=== PATIENT | female | born 2000 | race American Indian/Alaskan Native ===

== ENCOUNTER → 2021-07-17 13:17 | Outpatient (CLI) | payer OTHER, SELFPAY ==
[2021-07-17 15:00] LABS: COVID19 -Nasal RAPID Negative (Negative)
== END ==
PROVIDERS: Visit Provider Physician Assistant
DX: Z20.822 Contact with and (suspected) exposure to COVID-19 (principal); J31.2 Chronic pharyngitis
CPT/HCPCS: 87070; 87635

== ENCOUNTER 2023-07-03 23:00 | Emergency (ER) | payer OTHER, SELFPAY ==
[2023-07-03 23:12] VITALS: BP 130/56; PULSE 71; RESP 17; TEMP 36.6; O2SAT 97; BMI 24.9
--- NOTE | 2023-07-03 23:20 | PC.NURSE ---
At this time, this RN called poison control and reports the accidental overdose of 1800mcg of vaginal misoprostol. There are not expected to be any major side effects other than possibly worse cramping than she would have otherwise had. Patient does not need to stay for monitoring, is ok to DC. She should return to the ER for sever vaginal bleeding.
--- NOTE | 2023-07-04 01:21 | ED.GENADULT ---
HPI - General Adult General Chief complaint: Toxicology Problem Stated complaint: overdosed on iisoprostol took 9 Time Seen by Provider: 07/04/23 01:21 Source: patient Mode of arrival: Ambulatory History of Present Illness HPI narrative: 23-year-old diagnosed with a missed , currently 12 weeks with 4 week size gestational sac and no bleeding. She was prescribed misoprostol and was to take it in 3 divided doses. Her mom laid out the 3 divided doses and Franny thought it was all supposed to be at 1 time. She used all 3 doses intravaginally at the same time. She comes in with concerns for overdose and questions. She is noting some mild abdominal cramping. She has taken ibuprofen as recommended by her OB provider. She does think that she is starting to have some minor spotting. Related Data Home Medications Medication Instructions Recorded Confirmed misoprostol 200 mcg tablet 600 mcg PO QID 07/03/23 07/03/23 Allergies Allergy/AdvReac Type Severity Reaction Status Date / Time Tetanus Vaccines and Toxoid Allergy Unknown Verified 07/03/23 23:19 [TETANUS VACCINES & TOXOID] Review of Systems Review of Systems Narrative: Pertinent positive and negative findings as per HPI Patient History Social History Smoking Status: Never smoker Smoking Status: Never smoker alcohol intake frequency: other Substance Use Type: does not use Exam Initial Vital Signs Initial Vital Signs: Vital Signs Temperature 98 F 07/03/23 23:12 Pulse Rate 71 07/03/23 23:12 Respiratory Rate 17 07/03/23 23:12 Blood Pressure 130/56 L 07/03/23 23:12 Pulse Oximetry 97 07/03/23 23:12 Oxygen Delivery Method Room Air 07/03/23 23:12 General: Alert appropriate in no acute distress Respiratory: Able to speak in full sentences, no obvious respiratory distress Skin: No obvious rashes, warm and dry Neurologic: Grossly intact no obvious asymmetries or abnormalities Psych: appropriate insight and affect, cooperative Course Vital Signs Vital signs: Vital Signs - 8 hr 07/03/23 23:12 Temperature 98 F Pulse Rate 71 Respiratory Rate 17 Blood Pressure 130/56 L Pulse Oximetry 97 Oxygen Delivery Method Room Air Medical Decision Making [facility] Narrative Medical decision making narrative: 23-year-old with missed , followed by OBGYN prescribed misoprostol to begin contractions. Inadvertently took a total of 3 doses that were supposed to be every 6 hours all at the same time intravaginally. She is beginning to have some cramping noting some mild spotting. Has also taken ibuprofen as prescribed. Phone call to poison control confirms this is not a toxic dose Patient and her mother are reassured. I did ask that she contact her primary OBGYN to see if a 2nd and 3rd dose of misoprostol are still recommended if she is not obviously having period levels of bleeding within the next 12 hours. Reassurance is given, questions are answered and she is safe for discharge Discharge Plan Departure Patient Disposition: Home Clinical Impression: Missed Activity Restrictions/Additional Instructions: Thank you for coming in today Fortunately, misoprostol is a very safe medication. Even though you took all 3 doses at the same time, there is no significant harm that will come from this. Please continue to use the ibuprofen as prescribed to help with the cramping. If you are not having bleeding starting within the next 12 hours, please contact your OBGYN to see if they would like you to repeat the 2nd and 3rd dose of misoprostol despite the larger 1st dose. If you find that you are getting worse or develop any new symptoms, please feel free to return to the emergency department for further evaluation. Prescriptions: No Action misoprostol 200 mcg Tablet 600 mcg PO QID Referrals: Doctor Hoskins MD [Primary Care Provider] - Stand Alone Forms: Patient Portal/API
[2023-07-04 01:58] VITALS: BP 129/61; PULSE 67; RESP 16; TEMP 37.3; O2SAT 100
== END 2023-07-04 01:45 | disposition home or self-care (01) ==
PROVIDERS: Emergency Provider Emergency Medicine
DX: O02.1 Missed abortion (principal)
CPT/HCPCS: 99282

== ENCOUNTER → 2023-12-07 15:52 | Outpatient (CLI) | payer OTHER, SELFPAY ==
--- NOTE | 2023-12-07 15:53 | DI.US.S_ITS ---
PROCEDURE: US OB <= 14 WEEKS FETUS INDICATIONS: EARLY OB BLEEDING OUTSIDE/PRIOR DATING DATA: Last menstrual period (LMP): 11/01/2023. LMP-based estimated date of delivery (ROSEMARIE): Not applicable First dating scan (date and location): Not applicable Estimated date of delivery (ROSEMARIE) from first dating scan: None applicable TECHNIQUE: Real-time scanning was performed of the fetus and maternal pelvic organs, with image documentation. Endovaginal scanning was also performed to better visualize the fetus and maternal ovaries. COMPARISON: None. FINDINGS: No intrauterine or extrauterine identified. Maternal organs: Ovaries unremarkable. IMPRESSION: No intrauterine or extra uterine identified. Comment: Recommend correlation with serial beta hCGs. Consider follow-up ultrasound in 2 weeks, based on chemical findings. We strive to produce accurate, complete, and clear reports of imaging services. To assist us in improving patient care, this report was composed using standard report templates and voice recognition software. Therefore, it may contain abnormal punctuation, insertions and/or omissions. Occasional wrong-word or sound-alike substitutions may occur. Though we review the report and make efforts to correct it, we do recommend that the report be read carefully in proper context to recognize any text inaccuracies. Dictated by: Mook Goldberg M.D. on 12/07/2023 at 21:48 Approved by: Mook Goldberg M.D. on 12/07/2023 at 21:50
== END ==
PROVIDERS: Referring Provider Family Medicine; Visit Provider Family Medicine
DX: O36.80X0 Pregnancy with inconclusive fetal viability, not applicable or unspecified
CPT/HCPCS: 76801